=== PATIENT | female | born 1985 | race Two or more races ===

== ENCOUNTER 2021-05-15 16:03 | Observation (INO) | payer SELFPAY ==
[~2021-05-15] VITALS: Ht 170.2 cm; Wt 74.8 kg
[2021-05-15 17:13] LABS: CLARITY URINE CLEAR (CLEAR); COLOR URINE YELLOW (YELLOW); KETONES URINE NEGATIVE (NEGATIVE); LEUKOCYTE ESTERASE URINE 2+ (NEGATIVE); NITRITE URINE NEGATIVE (NEGATIVE); OCCULT BLOOD URINE NEGATIVE (NEGATIVE); PROTEIN URINE NEGATIVE (NEGATIVE); SPECIFIC GRAVITY URINE 1.014 (1.005-1.030)
== END 2021-05-15 19:00 | disposition home or self-care (01) ==
LOC: 8 EST LDRP 16:03
PROVIDERS: ADMIT Obstetrics & Gynecology; ATTEND Obstetrics & Gynecology
DX: O26.893 Other specified pregnancy related conditions, third trimester (principal); R10.30 Lower abdominal pain, unspecified; O62.9 Abnormality of forces of labor, unspecified; Z3A.31 31 weeks gestation of pregnancy
CPT/HCPCS: 59025; 76805; 76817; 76818; 81003; G0378; 99281